=== PATIENT | female | born 1960 | race Caucasian/White ===

== ENCOUNTER 2023-08-28 16:00 | Inpatient (IN) | payer OTHER ==
[~2023-08-28] VITALS: Ht 167.6 cm; Wt 66.3 kg
[2023-08-28 16:03] VITALS: O2SAT 99
[2023-08-28] MEDS: CEFTRIAXONE 1GM/50ML 50 ML IV ONE (17:07)
[2023-08-28] MEDS: SODIUM CHLORIDE 0.9% 1000ML BAG (SEPSIS BOLUS) IV ONE (17:07)
[2023-08-28 17:27] LABS: HEMATOCRIT. 33.6 % (36.0-48.0); HEMOGLOBIN. 11.5 g/dL (12.0-16.0); MEAN CORPUSCULAR HEMOGLOBIN 31.3 pg (28.0-32.0); MEAN CORPUSCULAR HGB CONC 34.2 g/dL (31.0-37.0); MEAN CORPUSCULAR VOLUME 91.5 fL (81.0-99.0); MEAN PLATELET VOLUME 8.8 fl (7.4-10.4); PLATELET 286 x1000/uL (130-400); RED BLOOD CELL COUNT 3.68 mill/uL (4.2-5.4); RED CELL DISTRIBUTION WIDTH 14.1 % (11.6-14.6); WHITE BLOOD COUNT 14.8 x1000/uL (4.5-11.0)
[2023-08-28 17:28] LABS: DIFFERENTIAL COMMENT 1
[2023-08-28 17:33] LABS: CLARITY URINE TURBID (CLEAR); COLOR URINE DARK YELLOW (YELLOW); GLUCOSE URINE NEGATIVE (NEGATIVE); KETONES URINE NEGATIVE (NEGATIVE); LEUKOCYTE ESTERASE URINE 3+ (NEGATIVE); NITRITE URINE NEGATIVE (NEGATIVE); OCCULT BLOOD URINE NEGATIVE (NEGATIVE); PH URINE >=9.0 (4.5-8.0); PROTEIN URINE 3+ (NEGATIVE); SPECIFIC GRAVITY URINE 1.014 (1.005-1.030)
[2023-08-28 17:36] LABS: CHLORIDE 103 mEq/L (98-107); POTASSIUM 4.2 mEq/L (3.5-5.1); SODIUM 137 mEq/L (136-145)
[2023-08-28 17:37] LABS: CARBON DIOXIDE 27 mEq/L (21-32)
[2023-08-28 17:38] LABS: CALCIUM 9.4 mg/dL (8.7-10.4)
[2023-08-28 17:42] LABS: CREATININE 0.9 mg/dL (0.6-1.0); GLUCOSE 122 mg/dL (70-105)
[2023-08-28 17:43] LABS: TROPONIN I HIGH SENSITIVITY 12 ng/L (3.0-34); UREA NITROGEN BLOOD 18 mg/dL (9-23)
[2023-08-28 17:44] LABS: ALANINE AMINOTRANSFERASE 18 IU/L (10-49); ALBUMIN 4.5 g/dL (3.2-4.8); ASPARTATE AMINOTRANSFERASE 23 IU/L (<34); INR 0.9; PARTIAL THROMBOPLASTIN TIME 26.3 sec (23.4-31.0); PROTHROMBIN TIME 10.3 sec (9.6-11.0)
[2023-08-28 17:45] LABS: BILIRUBIN TOTAL 0.9 mg/dL (0.1-1.0); PROTEIN TOTAL 7.2 g/dL (6.0-8.3)
[2023-08-28 17:51] LABS: PLATELET ESTIMATE NORMAL
[2023-08-28 18:22] LABS: BACTERIA URINE 4+; SQUAMOUS EPITHELIAL CELL URINE 1+ /lpf (RARE/1+); WBC URINE 50-100 /hpf (0-2)
[2023-08-28 18:23] LABS: TRIPLE PHOSPHATE CRYSTAL URINE 2+ /lpf
[2023-08-28] MEDS: DILTIAZEM HCL 5MG/ML 5ML VIAL IV ONE (18:24)
[2023-08-28] MEDS: ACETAMINOPHEN 325MG TABLET PO ONE (18:35)
[2023-08-28] MEDS: ACETAMINOPHEN 650MG SUPP PR SCH (18:35)
[2023-08-28] MEDS: AZITHROMYCIN 500MG/250ML 250 ML IV ONE (19:15)
[2023-08-28] MEDS: MIDAZOLAM HCL 2 MG/2 ML VIAL IV ONE (19:21)
[2023-08-28] MEDS: KETOROLAC 15MG/ML VIAL IV ONE (20:07)
[2023-08-28] MEDS: DEXT 5%/0.9% NACL 1,000 ML IV ONE (21:49)
[2023-08-28] MEDS ORDERED: NOREPINEPHRINE 8 MG in DEXT 5% WATER 242 ML IV STA (21:59)
[2023-08-28] MEDS: NOREPINEPHRINE 8MG/250ML PMX 250 ML IV PRN (22:11)
[2023-08-28] MEDS ORDERED: MAGNESIUM/ALUMINUM HYDROXIDE/SIMETHICONE 30ML UDC PO PRN (23:30)
[2023-08-28] MEDS ORDERED: IPRATROPIUM/ALBUTEROL 0.5-3(2.5)MG/3ML NEB HHN PRN (23:30)
[2023-08-28] MEDS ORDERED: CLONIDINE 0.1MG TABLET PO PRN (23:30)
[2023-08-28] MEDS ORDERED: GUAIFENESIN 200MG/10ML SUGAR FREE UDC PO PRN (23:30)
[2023-08-28] MEDS ORDERED: DOCUSATE SODIUM 100MG CAPSULE PO PRN (23:30)
[2023-08-28] MEDS ORDERED: DEXTROSE 50% WATER 50ML SYRINGE IV PRN (23:45)
[2023-08-28] MEDS ORDERED: VANCOMYCIN 1.25GM PMX (XELLIA) 250 ML IV NR (23:45)
[2023-08-29] VITALS (50 sets, daily range): BP systolic 80–137; BP diastolic 53–102; PULSE 64–96; RESP 13–30; TEMP 97.6–101.4
[2023-08-29 00:24] LABS: IRON 24 ug/dL (50-170)
[2023-08-29 00:27] LABS: PHOSPHORUS 2.6 mg/dL (2.5-4.9); TOTAL IRON BINDING CAPACITY 474 ug/dl (250-425)
[2023-08-29] MEDS: DEXT 5%/0.9% NACL 1,000 ML IV SCH (03:00)
[2023-08-29] MEDS ORDERED: PIPERACILLIN/TAZOBACTAM 3.375 G in DEXTROSE 5% WATER 50 ML IV SCH (06:00)
[2023-08-29] MEDS: INSULIN LISPRO 100 UNITS/ML SUBCUT SCH (06:42)
[2023-08-29] MEDS: BLOOD SUGAR DIAGNOSTIC STRIP TEST SCH (06:42)
[2023-08-29] MEDS: PIPERACILLIN/TAZO 3.375G/50ML IV SCH (06:42)
[2023-08-29] MEDS: PANTOPRAZOLE SODIUM 40 MG/VIAL IV SCH (08:32)
[2023-08-29 09:00] LABS: HEMATOCRIT. 31.9 % (36.0-48.0); HEMOGLOBIN. 10.8 g/dL (12.0-16.0); MEAN CORPUSCULAR HEMOGLOBIN 31.3 pg (28.0-32.0); MEAN CORPUSCULAR VOLUME 92.1 fL (81.0-99.0); MEAN PLATELET VOLUME 8.5 fl (7.4-10.4); PLATELET 220 x1000/uL (130-400); RED BLOOD CELL COUNT 3.46 mill/uL (4.2-5.4); RED CELL DISTRIBUTION WIDTH 14.3 % (11.6-14.6); WHITE BLOOD COUNT 19.1 x1000/uL (4.5-11.0)
[2023-08-29 09:06] LABS: DIFFERENTIAL COMMENT 1
[2023-08-29 09:09] LABS: CHLORIDE 117 mEq/L (98-107); POTASSIUM 3.8 mEq/L (3.5-5.1)
[2023-08-29 09:10] LABS: CALCIUM 8.1 mg/dL (8.7-10.4); CARBON DIOXIDE 21 mEq/L (21-32)
[2023-08-29 09:15] LABS: CREATININE 0.7 mg/dL (0.6-1.0); GLUCOSE 120 mg/dL (70-105); TRIGLYCERIDE 48 mg/dL (0-150); UREA NITROGEN BLOOD 15 mg/dL (9-23)
[2023-08-29 09:16] LABS: LDL CHOLESTEROL 53 mg/dL (5-100)
[2023-08-29 09:17] LABS: CHOLESTEROL 120 mg/dL (<200); CREATINE KINASE 325 IU/L (34-145); HDL CHOLESTEROL 61 mg/dL (>65)
[2023-08-29 09:20] LABS: FERRITIN 112 ng/mL (10-291); FOLIC ACID (FOLATE) SERUM 17.99 ng/mL (>5.38); VITAMIN B12 SERUM 1534 pg/mL (211-911)
[2023-08-29 09:21] LABS: T4 FREE 0.89 ng/dL (0.89-1.76); THYROID STIMULATING HORMONE 1.11 uIU/mL (0.55-4.78)
[2023-08-29 09:26] LABS: SODIUM 146 mEq/L (136-145)
[2023-08-29 09:28] LABS: TROPONIN I HIGH SENSITIVITY 2850 ng/L (3.0-34)
[2023-08-29] MEDS: ONDANSETRON HCL 4MG/2ML INJ IV PRN (10:25)
[2023-08-29] MEDS: ENOXAPARIN 80MG/0.8ML SYR SUBCUT SCH (10:26)
[2023-08-29] MEDS: ASPIRIN 81MG TABLET PO SCH (10:29)
[2023-08-29] MEDS: DEXT 5%/0.45% NACL 1000ML 1,000 ML IV SCH (10:30)
[2023-08-29] MEDS: VANCOMYCIN 1.5GM/250ML 250 ML IV SCH (12:50)
[2023-08-29] MEDS ORDERED: EPINEPHRINE 10 MG in SODIUM CHLORIDE 0.9% 240 ML IV PRN (14:45)
[2023-08-29] MEDS ORDERED: VASOPRESSIN 20 UNIT in SODIUM CHLORIDE 0.9% 99 ML IV PRN (14:45)
[2023-08-29 14:53] LABS: CREATINE KINASE 312 IU/L (34-145)
[2023-08-29 15:05] LABS: TROPONIN I HIGH SENSITIVITY 2652 ng/L (3.0-34)
[2023-08-29 16:31] LABS: PLATELET ESTIMATE NORMAL
[2023-08-29] MEDS: ATORVASTATIN CALCIUM 40MG TABLET PO SCH (21:05)
[2023-08-29] MEDS: VANCOMYCIN 750MG PREMIX 150 ML IV SCH (21:07)
[2023-08-29] MEDS: ACETAMINOPHEN 325MG TABLET PO PRN (21:32)
== END 2023-08-30 00:10 | disposition short-term general hospital (02) | DRG 871 ==
LOC: ER 16:00 → MICUNO 22:01 → EDBEDREQSVC 22:04 → EDBEDREQ 22:04 → EDBEDREQTM 22:04
PROVIDERS: ADMIT Hospitalist; ATTEND Hospitalist
DX: A41.50 Gram-negative sepsis, unspecified (principal); G92.8 Other toxic encephalopathy; R65.21 Severe sepsis with septic shock; I21.4 Non-ST elevation (NSTEMI) myocardial infarction; G91.9 Hydrocephalus, unspecified; N39.0 Urinary tract infection, site not specified; B96.20 Unspecified Escherichia coli [E. coli] as the cause of diseases classified elsewhere; Z20.822 Contact with and (suspected) exposure to COVID-19; D50.8 Other iron deficiency anemias; D64.9 Anemia, unspecified; K59.00 Constipation, unspecified; Z79.899 Other long term (current) drug therapy
CPT/HCPCS: 36415; 71045; 80048; 80053; 80061; 81003; 82550; 82607; 82728; 82746; 82962; 83036; 83540; 83550; 83605; 83735; 84100; 84145; 84439; 84443; 84484; 85025; 87077; 87186; 87426; 93005; 93306; 93970; 99285; C9113; J0456; J0696; J1650; J1885; J2250; J2405; J2543; J3370; J3490; J7030; J7042; J7060